=== PATIENT | female | born 1985 | race African-American/Black ===

== ENCOUNTER → 2016-07-25 | Outpatient (CLI) | payer OTHER ==
[~2016-07-25] MED LIST: BACLOFEN10 MG PO; BENTYL10 MG PO; BENTYL20 MG PO; LORTAB 10-5001 EACH PO; PHENERGAN25 M1 PO; PHENERGAN25 MG PO; TRAMADOL HCL50 M1 PO; TYLENOL #3 PO; ULTRAM PO; ZOFRAN ODT4 MG PO; ZOFRAN ODT4 MG/UDTAB PO
[2016-07-25 12:40] LABS: HEMATOCRIT 38.7 % (35.0-45.0); HEMOGLOBIN 12.8 gm/dL (12.0-16.0); MEAN CELL VOLUME 93.4 FL (83-96); MEAN CORPUSCULAR HEMOGLOBIN 30.9 PG (28-34); MEAN CORPUSCULAR HGB CONC 33.1 g/dL (30-36); MEAN PLATELET VOLUME 7.9 FL (6.5-11.5); RED BLOOD COUNT 4.14 X10e (3.90-5.30); RED CELL DISTRIBUTION WIDTH 12.8 % (11.0-15.5); WHITE BLOOD COUNT 4.5 X10e3 (4.0-10.5)
[2016-07-25 13:06] LABS: BLOOD UREA NITROGEN 18 mg/dL (9-23); CALCIUM SERUM 9.4 mg/dL (8.4-10.2); CARBON DIOXIDE 24 mmol/L (22-31); CHLORIDE 107 mmol/L (100-111); CREATININE SERUM 0.6 mg/dL (0.6-1.4); GLOM FILT RATE Estimated ABOVE60 mL/min (>60); GLUCOSE FASTING 92 mg/dL (70-110); POTASSIUM 3.9 mmol/L (3.5-5.1); SODIUM 137 mmol/L (135-145)
== END | disposition home or self-care (01) ==
LOC: CAMB 12:03
PROVIDERS: Orthopaedic Surgery
DX: Z01.812 Encounter for preprocedural laboratory examination (principal)
CPT/HCPCS: 36415; 80048; 85027

== ENCOUNTER → 2016-07-29 | Day surgery (SDC) | payer OTHER ==
--- NOTE | ~2016-07-29 | OR ---
Unit #: [id number] #: [id number] Patient: ERNESTINA GOYAL [id number] [address] [address] [id number] O MR#: [id number] NAME: ERNESTINA GOYAL ROOM: Date of Procedure: 07/29/2016 Admission Date: 07/29/2016 Surgeon: Tyrell Shine M.D. : 1985 Attending Physician: Tyrell Shine M.D. Primary Care Physician: Oscar Segovia M.D. OPERATIVE REPORT PREOPERATIVE DIAGNOSIS Right lateral hip soft tissue mass. POSTOPERATIVE DIAGNOSIS Right lateral hip soft tissue mass. PROCEDURE PERFORMED Excision of right lateral hip soft tissue mass. [employer] None. ANESTHESIA General with LMA. COMPLICATIONS None. SPECIMENS 3 x 1 x 1 cm fatty soft tissue mass. DRAINS None. SURGICAL IMPLANTS None. INDICATIONS FOR PROCEDURE Ms. Goyal is a 30-year-old female with persistent right lateral hip pain with a palpable mass in the subcutaneous tissues. The patient was sent for an MRI to further evaluate the mass. It was most likely noted to be fat necrosis. Cortisone injection was attempted without improvement. The patient wished to have this electively excised. Risks, benefits, and alternatives of surgery were discussed with the patient. Informed consent was obtained. Risks include, but not limited to, infection, bleeding, nerve injury, blood clots, need for further surgery, risks associated with anesthesia, and possibly . DESCRIPTION OF PROCEDURE On 07/29/2016, the patient was seen in the preoperative holding area, where her surgical site was marked. Preoperative antibiotics were received. H and P and consent updated. The patient was taken to the Unit #: [id number] #: [id number] Patient: ERNESTINA GOYAL operating room, provided general anesthesia and placed in the left lateral decubitus position. Right hip was prepped and draped in typical sterile fashion. Time-out was performed confirming the correct surgical site and procedure. Approximately, 1.5 inch incision was made over the lateral hip overlying the soft tissue mass. Incision was taken down through the skin and subcutaneous tissue. Within the subcutaneous fat, there was a 3 x 1 x 1 cm mass noted. This was excised with some of the surrounding fat. This is likely fat necrosis. Once the soft tissue mass was excised, the wound was thoroughly irrigated. Hemostasis was noted. 0.25% Marcaine with epinephrine injected into the subcutaneous tissues. The subcutaneous tissue was closed with 2-0 Vicryl suture followed by a 4-0 Monocryl subcuticular skin stitch. Dermabond, Telfa, and Tegaderm were placed. The patient was subsequently awakened from general anesthesia in stable condition and taken to PACU postoperatively. The soft tissue mass was sent for pathology. POSTOPERATIVE PLAN The patient will be discharged home. She will keep the dressing on for at least 5 days. She can shower over it. She will be weightbearing as tolerated. She will follow up in my office in approximately 10 days. No complications were encountered during the surgical procedure. Dictated by... Tyrell Shine M.D. MATT/maksim TD: 07/30/2016 12:28 JOB #: [id number] OPERATIVE REPORT Page 1 of 1 X X PROCEDURE OPERATIVE NOTE
== END | disposition home or self-care (01) ==
LOC: CSUR 11:03
DX: M79.89 Other specified soft tissue disorders (principal); J45.909 Unspecified asthma, uncomplicated; M70.71 Other bursitis of hip, right hip; F17.210 Nicotine dependence, cigarettes, uncomplicated; Z87.19 Personal history of other diseases of the digestive system; Z90.710 Acquired absence of both cervix and uterus; Z90.49 Acquired absence of other specified parts of digestive tract; Z79.891 Long term (current) use of opiate analgesic
CPT/HCPCS: 88304; J0690; J2250; J2270; J3010